=== PATIENT | male | born 2000 | race Caucasian/White ===

== ENCOUNTER 2020-09-27 12:21 | Inpatient (IN) | payer OTHER ==
[~2020-09-27] VITALS: Ht 165.1 cm; Wt 88.9 kg
--- NOTE | 2020-09-27 12:35 | NUR ---
BIBS FROM HOME TO ER BED 6. AAOX4. NOT IN RESP DISTRESS, BREATHING EVEN AND UNLABORED. AMBULATORY. CAME IN FOR LOWER ABDOMINAL PAIN RADIATING TO R BACK X 2 DAYS. 03/20 [place]. DENIES NAUSEA, VOMMITING NOR DIARRHEA. MD BRYANT AT THE BEDSIDE FOR EVAL. AWAITING ORDERS
[2020-09-27] MEDS ORDERED: ONDANSETRON HCL/PF 4 MG/2 ML VIAL ONE (12:50)
[2020-09-27] MEDS ORDERED: MORPHINE SULFATE INJ 4 MG/ML DISP.SYRIN ONE (12:50)
[2020-09-27] MEDS ORDERED: MORPHINE SULFATE INJ 2 MG/ML DISP.SYRIN IV ONE (13:00)
[2020-09-27] MEDS ORDERED: IV NS 0.9% 1,000 ML BAG IV ONE (13:00)
[2020-09-27] MEDS ORDERED: ONDANSETRON HCL/PF 4 MG/2 ML VIAL IVP ONE (13:00)
[2020-09-27 13:09] LABS: BASOPHILS % (AUTO) 0.5 % (0.0-2.0); EOSINOPHILS % (AUTO) 1.1 % (0.0-6.0); HEMATOCRIT 46 % (39-51); HEMOGLOBIN 15.3 g/dL (13.5-17.5); LYMPHOCYTES # (AUTO) 3.2 /CMM (0.8-4.8); LYMPHOCYTES % (AUTO) 31.2 % (20.0-44.0); MEAN CORPUSCULAR HGB CONC 34 g/dl (31.0-36.0); MEAN CORPUSCULAR VOLUME 86 fL (80-96); MONOCYTES # (AUTO) 1.2 /CMM (0.1-1.30); MONOCYTES % (AUTO) 11.1 % (2.0-12.0); NEUTROPHILS # (AUTO) 5.8 /CMM (1.8-8.9); NEUTROPHILS % (AUTO) 56.1 % (43.0-81.0); PLATELET COUNT (AUTO) 250 /CMM (150-450); RED BLOOD CELL COUNT(AUTO) 5.33 MIL/uL (4.5-6.0); WHITE BLOOD COUNT (AUTO) 10.4 K/uL (4.3-11.0)
[2020-09-27 13:20] LABS: ALBUMIN 4.1 g/dL (3.4-5.0); BILIRUBIN,DIRECT 0.1 mg/dL (0.0-0.2); BILIRUBIN,TOTAL 0.4 mg/dL (0.2-1.0); CALCIUM, SERUM 9.3 mg/dL (8.5-10.1); CREATININE 1.1 mg/dL (0.6-1.3); POTASSIUM 3.6 mmol/L (3.5-5.1); TOTAL PROTEIN, SERUM 8.8 g/dL (6.4-8.2)
[2020-09-27] MEDS ORDERED: IOHEXOL-350 100 ML VIAL IV ONE (13:34)
[2020-09-27] MEDS ORDERED: IV NS 0.9% 250 ML IV ONE (13:35)
[2020-09-27] MEDS ORDERED: CT SWABBABLE VALVE TRANS SET 1 EA INFUS.SET MC ONE (13:35)
[2020-09-27] MEDS ORDERED: PIPERACILLIN /TAZOBACTAM 3.375 G in IV D5W 50 ML IV ONE (14:00)
[2020-09-27] MEDS ORDERED: PIPERACILLIN /TAZOBACTAM 3.375 G VIAL IV ONE (14:24)
--- NOTE | 2020-09-27 14:33 | NUR ---
[facility] CALLED [facility] PAGED.
[2020-09-27] MEDS ORDERED: ONDANSETRON HCL/PF 4 MG/2 ML VIAL IVP PRN (16:00)
[2020-09-27 16:38] LABS: BILIRUBIN,URINE NEGATIVE (NEGATIVE); COLOR,URINE YELLOW (YELLOW); LEUKOCYTE ESTERASE ,URINE NEGATIVE (NEGATIVE); NITRITE, URINE NEGATIVE (NEGATIVE); PH,URINE 6.5 (5.0-8.0); PROTEIN,URINE NEGATIVE (NEGATIVE); UGLUCOSE NEGATIVE (NEGATIVE); UROBILINOGEN,URINE 0.2 EU/dL (0.2)
[2020-09-27 16:58] LABS: BACTERIA,URINE Few /HPF (None Seen); SQUAMOUS EPITHELIAL CELL,UR Few /HPF (None Seen); WBC,URINE 0-2 /HPF (0-3)
--- NOTE | 2020-09-27 17:27 | NUR ---
LAB CALLED COVID RESULT NEGATIVE (-)
--- NOTE | 2020-09-27 18:14 | NUR ---
REPORT GIVEN TO PABLITO AGGARWAL FOR CHRISTINA
--- NOTE | 2020-09-27 18:14 | NUR ---
NPO AFTER MODNIGHT PER DR. CARBAJAL
--- NOTE | 2020-09-27 18:14 | NUR ---
DR. CARBAJAL AT BEDSIDE
[2020-09-27 18:40] VITALS: BP 145/68
--- NOTE | 2020-09-27 18:40 | NUR ---
RN MS NOTES RECEIVED PT FROM E.R. STAFF BI
--- NOTE | 2020-09-27 18:40 | NUR ---
RN MS NOTES RECEIVED PT FROM E.R. STAFF VIA [facility], ASSISTED TO BED, MADE COMFORTABLE, ROOM SET ORIENTATION PROVIDED TO PT, VERBALIZED UNDERSTANDING, PT IS AWAKE, ALERT AND ORIENTED, WITH COMPLAINT OF ABDOMINAL PAIN 7/10, NO COMPLAINT OF NAUSEA OR VOMITING, VITALS TAKEN AND RECORDED, KEPT COMFORTABLE IN BED.
--- NOTE | 2020-09-27 18:40 | NUR ---
PT TRANSPORTED TO [facility] ON [facility] WITH EMT AND RN AT [place] W/ ACLS PROTOCOL. NAD NOTED DURING TRANSPORT. PT AMBULATED FROM [facility] TO BED WITHOUT ASSIST ON STEADY GAIT.
--- NOTE | 2020-09-27 19:40 | NUR ---
MS RN: ADMISSION 20 y/o male A/O x4. Skin checked done, skin intact. NPO, on IVF. Oriented to room, unit, staff. Instructed on how to use call light, verbalized understanding. Fall precaution maintained.
[2020-09-27 20:00] VITALS: BP 126/57
[2020-09-27] MEDS: IV NS 0.9% 1,000 ML IV PRN (20:58)
[2020-09-27] MEDS: CEFTRIAXONE 1 G in IV D5W 50 ML IV SCH (22:00)
[2020-09-27] MEDS ORDERED: CEFTRIAXONE 1 G VIAL ONE (22:55)
[2020-09-27] MEDS ORDERED: METRONIDAZOLE 500MG/ NS 100ML 100 ML IV ONE (22:55)
[2020-09-27] MEDS: METRONIDAZOLE 500MG/ NS 100ML 500 MG in PREMIX 1 EA IV SCH (23:16)
[2020-09-28] MEDS ORDERED: METRONIDAZOLE 500MG/ NS 100ML 100 ML IV ONE (04:54)
--- NOTE | 2020-09-28 06:05 | NUR ---
MS RN: END OF SHIFT REPORT Stable Oxygen saturation in room air. NPO, IVF infusing. ON IV Flagyl and Rocephin, afebrile. Right lower abdomen pain less than previous, denies N/V Planned for surgery consult today. Will endorse to oncoming RN.
[2020-09-28] MEDS: METRONIDAZOLE 500MG/ NS 100ML 500 MG in PREMIX 1 EA IV SCH ×3 (06:18→21:13)
[2020-09-28 06:45] LABS: BASOPHILS % (AUTO) 0.4 % (0.0-2.0); EOSINOPHILS % (AUTO) 1.3 % (0.0-6.0); HEMATOCRIT 43 % (39-51); HEMOGLOBIN 14.3 g/dL (13.5-17.5); LYMPHOCYTES % (AUTO) 29.3 % (20.0-44.0); MEAN CORPUSCULAR HGB CONC 33 g/dl (31.0-36.0); MEAN CORPUSCULAR VOLUME 86 fL (80-96); MONOCYTES # (AUTO) 0.6 /CMM (0.1-1.30); MONOCYTES % (AUTO) 9.3 % (2.0-12.0); NEUTROPHILS # (AUTO) 4.1 /CMM (1.8-8.9); NEUTROPHILS % (AUTO) 59.7 % (43.0-81.0); PLATELET COUNT (AUTO) 231 /CMM (150-450); RED BLOOD CELL COUNT(AUTO) 4.98 MIL/uL (4.5-6.0); WHITE BLOOD COUNT (AUTO) 6.9 K/uL (4.3-11.0)
[2020-09-28 07:17] LABS: CALCIUM, SERUM 8.3 mg/dL (8.5-10.1); MAGNESIUM 2.2 mg/dL (1.8-2.4); PHOSPHORUS 3.6 mg/dL (2.5-4.9); POTASSIUM 3.5 mmol/L (3.5-5.1)
--- NOTE | 2020-09-28 07:48 | NUR ---
MS/RN OPENING NOTES RECEIVED PATIENT ON BED. PATIENT IS ON ROOM AIR. PATIENT IN NO APPARENT RESPIRATORY DISTRESS NOTED. NO COMPLAINED OF PAIN NOTED AT THIS TIME. WILL CONTINUE TO MONITOR.
[2020-09-28 08:00] VITALS: BP 131/69
--- NOTE | 2020-09-28 09:27 | NUR ---
MS/RN NOTES DR. CARBAJAL ORDER NPO AND CONSENT FOR LAPAROSCOPIC APPENDECTOMY POSSIBLE OPEN EXPLORATORY LAPAROTOMY. NOTED AND CARRIED OUT.
[2020-09-28] MEDS: MORPHINE SULFATE INJ 2 MG/ML DISP.SYRIN IV PRN ×2 (11:54→17:22)
[2020-09-28] MEDS: IV NS 0.9% 1,000 ML IV PRN (12:07)
--- NOTE | 2020-09-28 13:54 | NUR ---
MS/RN NOTES PATIENT ALERT AND ORIENTED X4. PATIENT IN NO APPARENT RESPIRATORY DISTRESS NOTED. NO COMPLAINED OF PAIN. PATIENT IS OUT IN THE UNIT FOR SURGERY, AUTO COLLISION REPAIR INSTRUCTOR BY DOLLYMAN.
[2020-09-28] MEDS ORDERED: BACITRACIN ZINC OINT PACKET 1 EA PACKET TP ONE (15:28)
[2020-09-28] MEDS ORDERED: FENTANYL PF 100MCG/2ML AMPUL ONE (15:46)
--- NOTE | 2020-09-28 16:47 | NUR ---
MS/RN NOTES PATIENT COMEBACK FROM SURGERY. PATIENT IN ROOM AIR. PATIENT IN NO APPARENT RESPIRATORY DITRESS NOTED. COMPLAINED OF PAIN RATED 9/10. RECEIVED REPORT FROM [facility]A WEIGHT RECORDER. VITAL SIGN PER PER ROUTINE, LR AT 100 ML/HR, CLEAR LIQUID TODAY, REGULAR DIET TOMORROW, CBC, BMP MG, PHOSPHOROUS 09/29/20. NOTED AND CARRIED OUT.
[2020-09-28 16:58] VITALS: BP 129/65
[2020-09-28] MEDS: IV LR 1000 ML 1,000 ML IV PRN (17:22)
--- NOTE | 2020-09-28 18:08 | NUR ---
MS/RN NOTES DR CARBAJAL ORDER ACTIVITIES TOLERATED TONIGHT. NOTED AND CARRIED OUT.
--- NOTE | 2020-09-28 18:37 | NUR ---
MS/RN CLOSING NOTES PATIENT IS ON BED. ALERT AND ORIENTED X4. PATIENT IN ROOM AIR SATURATION 100%. PATIENT IN APPARENT RESPIRATORY DISTRESS NOTED. NO COMPLAINED OF PAIN NOTED AT THIS TIME. IV ACCESS AT RIGHT AC # 20G WITH IV FLUID OF LR 1L AT 100 ML/HOUR ON AND INFUSING WELL. SEEN EXAMINED BY MD WITH ORDERS MADE AND CARRIED OUT. ALL DUE MEDICATIONS WAS GIVEN. SAFETY PRECAUTIONS WAS IN PLACED. CALL LIGHT WITHIN REACH. STATUS POST APPENDECTOMY. WILL ENDORSED TO ROVING MARKER FOR CHRISTINA.
[2020-09-28 20:33] VITALS: BP 148/91
[2020-09-28] MEDS: CEFTRIAXONE 1 G in IV D5W 50 ML IV SCH (22:14)
[2020-09-29] MEDS: MORPHINE SULFATE INJ 2 MG/ML DISP.SYRIN IV PRN (01:21)
[2020-09-29 05:47] LABS: BASOPHILS % (AUTO) 0.2 % (0.0-2.0); EOSINOPHILS % (AUTO) 0.7 % (0.0-6.0); HEMATOCRIT 42 % (39-51); HEMOGLOBIN 13.8 g/dL (13.5-17.5); LYMPHOCYTES # (AUTO) 2.2 /CMM (0.8-4.8); LYMPHOCYTES % (AUTO) 31.4 % (20.0-44.0); MEAN CORPUSCULAR HGB CONC 33 g/dl (31.0-36.0); MEAN CORPUSCULAR VOLUME 86 fL (80-96); MONOCYTES # (AUTO) 0.6 /CMM (0.1-1.30); MONOCYTES % (AUTO) 8.7 % (2.0-12.0); NEUTROPHILS # (AUTO) 4.1 /CMM (1.8-8.9); PLATELET COUNT (AUTO) 243 /CMM (150-450); RED BLOOD CELL COUNT(AUTO) 4.86 MIL/uL (4.5-6.0); WHITE BLOOD COUNT (AUTO) 6.9 K/uL (4.3-11.0)
[2020-09-29] MEDS: METRONIDAZOLE 500MG/ NS 100ML 500 MG in PREMIX 1 EA IV SCH ×2 (05:50→13:16)
[2020-09-29 07:14] LABS: CALCIUM, SERUM 8.5 mg/dL (8.5-10.1); CREATININE 0.9 mg/dL (0.6-1.3); MAGNESIUM 2.1 mg/dL (1.8-2.4); PHOSPHORUS 3.6 mg/dL (2.5-4.9); POTASSIUM 3.6 mmol/L (3.5-5.1)
--- NOTE | 2020-09-29 07:43 | NUR ---
MS RN OPENING NOTE PATIENT IS IN BED RESTING. PATIENT IS IN NO ACUTE DISTRESS. PATIENT IS ON ROOM AIR, TOLERATING WELL. NO SOB NOTED. SAFETY PRECAUTIONS ARE IN PLACE. BED IN THE LOWEST POSITION, SIDE RAILS ARE UP. CALL LIGHT WITHIN REACH. WILL CONTINUE TO MONITOR CLOSELY.
[2020-09-29 08:00] VITALS: BP 144/77
[2020-09-29] MEDS: IV LR 1000 ML 1,000 ML IV PRN (09:13)
[2020-09-29] MEDS ORDERED: DOCU100C58 PO (15:15)
[2020-09-29] MEDS ORDERED: HYDR-3972 PO (15:16)
--- NOTE | 2020-09-29 16:15 | NUR ---
MS SENIOR CONSTRUCTION PROJECT MANAGER NOTE PATIENT IS IN NO ACUTE DISTRESS. PATIENT IS MEDICALLY STABLE TO BE DISCHARGED. NO SOB NOTED. PATIENT IS ON ROOM AIR. SKIN IN INTACT. DISCHARGE INSTRUCTIONS PROVIDED. PATIENT VERBALIZED UNDERSTANDING. PATIENTS IV SITE AND ID BAND REMOVED. PATIENT IS AMBULATORY. PATIENT WILL BE PICKED UP VIA PRIVATE CAR. MD IS AWARE OF DISCHARGE.
== END 2020-09-29 16:15 | disposition home or self-care (01) | DRG 234 ==
LOC: ER 12:32 → MED 18:24
PROVIDERS: ADMIT Nurse Practitioner Family; ATTEND Nurse Practitioner Family
PROC: 0DTJ4ZZ Resection of Appendix, Percutaneous Endoscopic Approach (ICD-10-PCS; principal; 2020-09-28)
DX: K35.80 Unspecified acute appendicitis (principal)
CPT/HCPCS: 36415; 80048-TC; 80076-TC; 81001; 83605-TC; 83690-TC; 83735-TC; 84100-TC; 85025-TC; 85610-TC; 86850-TC; 87040-TC; 87081-TC; 88304-TC; A4216; C9803; G0378; J0696; J1100; J2270; J2405; J2543; J2704; J3010; J7030; J7050; J7060; J7120; Q9967